=== PATIENT | female | born 1995 | race African-American/Black ===

== ENCOUNTER 2020-01-31 15:32 | Inpatient (IN) | payer MEDICAID, OTHER ==
[~2020-01-31] VITALS: Ht 144.8 cm; Wt 71.0 kg
[2020-01-31] MEDS ORDERED: DIVA-85 PO (16:10)
[2020-01-31] MEDS ORDERED: LEVE250T55 PO (16:10)
[2020-01-31] MEDS ORDERED: ESCI-8 PO (16:10)
[2020-01-31 16:48] LABS: BASOPHILS % (AUTO) 0.4 % (0.0-2.0); EOSINOPHILS % (AUTO) 2.9 % (1.0-6.0); HEMATOCRIT 40.2 % (36-46); LYMPHOCYTES # (AUTO) 1.4 K/uL (1.0-4.8); LYMPHOCYTES % (AUTO) 30.8 % (22.0-44.0); MEAN CORPUSCULAR HEMOGLOBIN 29.2 pg (26.0-34.0); MEAN CORPUSCULAR HGB CONC 32.3 G/dL (31.0-37.0); MEAN CORPUSCULAR VOLUME 90 fL (80-100); MONOCYTES # (AUTO) 0.5 K/uL (0.1-1.0); MONOCYTES % (AUTO) 10.7 % (2.0-9.0); NEUTROPHILS # (AUTO) 2.6 K/uL (1.8-7.7); NEUTROPHILS % (AUTO) 55.2 % (40.0-70.0); PLATELET COUNT (AUTO) 232 K/uL (150-450); RED BLOOD CELL COUNT(AUTO) 4.45 MIL/uL (4.00-5.20); RED CELL DISTRIBUTION WIDTH 15.4 % (11.5-14.5)
[2020-01-31 16:56] LABS: ANION GAP 5 mmol/L (8-16); CALCIUM, TOTAL 8.7 mg/dL (8.8-10.5); CARBON DIOXIDE 28 mmol/L (22-29); CHLORIDE 104 mmol/L (98-107); CREATININE 0.93 mg/dL (0.60-1.30); GLOMERULAR FILTR. RATE CALC > 60 mL/min (>60); GLUCOSE,RANDOM 95 mg/dL (70-110); POTASSIUM 3.7 mmol/L (3.5-5.1); SODIUM SERUM 137 mmol/L (136-145); UREA NITROGEN, BLOOD 10 mg/dL (7-18)
[2020-01-31 17:08] LABS: ALANINE AMINOTRANSFERASE 26 U/L (12-78); ALBUMIN 3.4 g/dL (3.4-5.0); ALKALINE PHOSPHATASE 52 U/L (46-116); ASPARTATE AMINOTRANSFERASE 16 U/L (15-37); BILIRUBIN,TOTAL 0.2 mg/dL (0.1-1.0); HCG,QUANTITATIVE 1 mIU/mL (0-6); TOTAL PROTEIN, SERUM 8.2 g/dL (6.4-8.2)
[2020-01-31] MEDS ORDERED: ZOLPIDEM TARTRATE 10 MG TABLET PO PRN (19:00)
[2020-01-31] MEDS ORDERED: QUEtiapine FUMARATE 100 MG TABLET PO PRN (19:00)
[2020-01-31 19:27] LABS: COVID AG,FIA SOURCE NASOPHARYNGEAL
[2020-01-31] MEDS ORDERED: MAGNESIUM HYDROXIDE SUSPENSION 30 ML UDCUP PO PRN (20:00)
[2020-01-31] MEDS ORDERED: PETROLATUM,WHITE 28 GM JELLY TP PRN (20:00)
[2020-01-31] MEDS ORDERED: IBUPROFEN 400 MG TABLET PO PRN (20:00)
[2020-01-31] MEDS ORDERED: MAG HYDROX/AL HYDROX/SIMETH ES 30 ML SUSPENSION UDCUP PO PRN (20:00)
[2020-01-31] MEDS ORDERED: ONDANSETRON HCL 4 MG TABLET PO PRN (20:00)
[2020-01-31] MEDS ORDERED: ACETAMINOPHEN 325 MG TABLET PO PRN (20:00)
[2020-01-31] MEDS ORDERED: ALBUTEROL SULFATE HFA 90 MCG/PUFF 8 GM INHALER IH PRN (20:00)
[2020-01-31] MEDS ORDERED: LOPERAMIDE HCL 2 MG CAPSULE PO PRN (20:00)
[2020-01-31] MEDS ORDERED: DOCUSATE SODIUM 100 MG CAPSULE PO PRN (20:00)
[2020-01-31] MEDS ORDERED: CloNIDine HCL 0.1 MG TABLET PO PRN (20:00)
[2020-01-31] MEDS ORDERED: GuaiFENesin/D-METHORPHAN [SUGAR-FREE] 200-20MG/10 ML SYRUP UDCUP PO PRN (20:00)
[2020-01-31] MEDS ORDERED: NICOTINE 14 MG/24 HOUR PATCH TD PRN (20:00)
[2020-01-31] MEDS: LevETIRAcetam 250 MG TABLET PO SCH (22:01)
[2020-01-31 22:03] VITALS: BP 118/77
[2020-01-31] MEDS ORDERED: INFLUENZA VIRUS VACCINE QVS 2020-21 (6MO+)/PF 60 MCG/0.5 ML SYRINGE IM ONE (23:00)
[2020-02-01 00:16] VITALS: BP 112/64
[2020-02-01 07:37] LABS: HEMOGLOBIN A1C 5.6 % (3.8-5.6)
[2020-02-01 07:54] LABS: FREE T4 (FREE THYROXINE) 1.02 ng/dL (0.76-1.46); THYROID STIMULATING HORMONE 2.95 uIU/mL (0.36-3.74)
[2020-02-01 08:09] LABS: CHOL/HDL RATIO 2.7 (3.9-5.7)
[2020-02-01 08:11] VITALS: BP 113/65
[2020-02-01] MEDS: LevETIRAcetam 250 MG TABLET PO SCH ×2 (09:06→15:46)
[2020-02-01] MEDS: LORazepam 2 MG TABLET PO PRN (13:46)
[2020-02-01] MEDS: DIVALPROEX SODIUM 250 MG ER TABLET PO SCH (15:47)
[2020-02-01 16:13] VITALS: BP 118/68
[2020-02-02] VITALS: BP 114/67
[2020-02-02] MEDS: DIVALPROEX SODIUM 250 MG ER TABLET PO SCH ×2 (08:37→17:05)
[2020-02-02] MEDS: LevETIRAcetam 250 MG TABLET PO SCH ×2 (08:37→17:05)
[2020-02-02] MEDS: ESCITALOPRAM OXALATE 10 MG TABLET PO SCH (08:37)
[2020-02-02 09:24] VITALS: BP 109/64
[2020-02-02 16:16] VITALS: BP 107/60
[2020-02-03 06:58] VITALS: BP 110/68
[2020-02-03 08:15] VITALS: BP 116/62
[2020-02-03] MEDS: LevETIRAcetam 250 MG TABLET PO SCH ×2 (08:21→16:16)
[2020-02-03] MEDS: DIVALPROEX SODIUM 250 MG ER TABLET PO SCH ×2 (08:21→16:16)
[2020-02-03] MEDS: ESCITALOPRAM OXALATE 10 MG TABLET PO SCH (08:21)
[2020-02-03 16:06] VITALS: BP 135/77
[2020-02-04 06:07] VITALS: BP 118/61
[2020-02-04 08:26] VITALS: BP 107/64
[2020-02-04] MEDS: DIVALPROEX SODIUM 250 MG ER TABLET PO SCH ×2 (08:36→16:06)
[2020-02-04] MEDS: ESCITALOPRAM OXALATE 10 MG TABLET PO SCH (08:36)
[2020-02-04] MEDS: LevETIRAcetam 250 MG TABLET PO SCH ×2 (08:37→16:06)
[2020-02-04 16:10] VITALS: BP 105/59
[2020-02-05 00:14] VITALS: BP 108/63
[2020-02-05] MEDS: LevETIRAcetam 250 MG TABLET PO SCH ×2 (08:26→16:23)
[2020-02-05] MEDS: ESCITALOPRAM OXALATE 10 MG TABLET PO SCH (08:26)
[2020-02-05] MEDS: DIVALPROEX SODIUM 250 MG ER TABLET PO SCH ×2 (08:26→16:23)
[2020-02-05 08:28] VITALS: BP 106/64
[2020-02-05 16:10] VITALS: BP 103/63
[2020-02-06 00:12] VITALS: BP 108/61
[2020-02-06 02:10] VITALS: BP 138/74
[2020-02-06 08:23] VITALS: BP 106/60
[2020-02-06] MEDS: LevETIRAcetam 250 MG TABLET PO SCH ×2 (08:32→17:02)
[2020-02-06] MEDS: ESCITALOPRAM OXALATE 10 MG TABLET PO SCH (08:32)
[2020-02-06] MEDS: DIVALPROEX SODIUM 250 MG ER TABLET PO SCH ×2 (08:32→17:02)
[2020-02-06 16:08] VITALS: BP 106/65
[2020-02-06] MEDS: LORazepam 2 MG TABLET PO PRN (16:11)
[2020-02-07] VITALS: BP 110/68
[2020-02-07 08:08] VITALS: BP 102/60
[2020-02-07] MEDS: ESCITALOPRAM OXALATE 10 MG TABLET PO SCH (08:30)
[2020-02-07] MEDS: DIVALPROEX SODIUM 250 MG ER TABLET PO SCH (08:30)
[2020-02-07] MEDS: LevETIRAcetam 250 MG TABLET PO SCH (08:31)
== END 2020-02-07 14:47 | disposition home or self-care (01) | DRG 753 ==
LOC: EMS 15:38 → B2S 18:55
PROVIDERS: ADMIT Psychiatry & Neurology Child & Adolescent Psychiatry; ATTEND Psychiatry & Neurology Child & Adolescent Psychiatry
DX: F31.4 Bipolar disorder, current episode depressed, severe, without psychotic features (principal); R45.851 Suicidal ideations; F41.9 Anxiety disorder, unspecified; G40.909 Epilepsy, unspecified, not intractable, without status epilepticus; R10.13 Epigastric pain; I10 Essential (primary) hypertension; F10.10 Alcohol abuse, uncomplicated; Y90.9 Presence of alcohol in blood, level not specified; G44.209 Tension-type headache, unspecified, not intractable; Z20.828 Contact with and (suspected) exposure to other viral communicable diseases; Z23 Encounter for immunization
CPT/HCPCS: 83036; 84439; 84443; 87426; 90686; G0480; G0482

== ENCOUNTER 2023-12-22 16:06 | Emergency (ER) | payer MEDICAID ==
[~2023-12-22] VITALS: Ht 139.7 cm; Wt 80.0 kg
[~2023-12-22 16:06] MED LIST: DIVA-85 PO; ESCI-8 PO; LEVE250T81 PO
[2023-12-22 16:12] VITALS: BP 110/62; PULSE 67; RESP 18; TEMP 97.9; O2SAT 98
[2023-12-22 16:58] LABS: BASOPHILS % (AUTO) 0.6 % (0.0-2.0); EOSINOPHILS % (AUTO) 3.4 % (1.0-6.0); HEMATOCRIT 44.8 % (36-46); HEMOGLOBIN 14.1 g/dL (12.0-16.0); LYMPHOCYTES # (AUTO) 2.4 K/uL (1.0-4.8); LYMPHOCYTES % (AUTO) 40.3 % (22.0-44.0); MEAN CORPUSCULAR HEMOGLOBIN 27.9 pg (26.0-34.0); MEAN CORPUSCULAR HGB CONC 31.5 G/dL (31.0-37.0); MEAN CORPUSCULAR VOLUME 89 fL (80-100); MONOCYTES # (AUTO) 0.5 K/uL (0.1-1.0); MONOCYTES % (AUTO) 7.8 % (2.0-9.0); NEUTROPHILS # (AUTO) 2.9 K/uL (1.8-7.7); NEUTROPHILS % (AUTO) 47.9 % (40.0-70.0); PLATELET COUNT (AUTO) 233 K/uL (150-450); RED BLOOD CELL COUNT(AUTO) 5.06 MIL/uL (4.00-5.20); RED CELL DISTRIBUTION WIDTH 14.7 % (11.5-14.5)
[2023-12-22 17:06] LABS: ANION GAP 6 mmol/L (8-16); CARBON DIOXIDE 33 mmol/L (22-29); CHLORIDE 102 mmol/L (98-107); GLOMERULAR FILTR. RATE CALC > 60 mL/min (>60); GLUCOSE,RANDOM 86 mg/dL (70-110); SODIUM SERUM 141 mmol/L (136-145); UREA NITROGEN, BLOOD 10 mg/dL (7-18)
[2023-12-22 17:17] LABS: HCG,QUANTITATIVE < 1 mIU/mL (0-6); LIPASE 16 U/L (16-77)
== END 2023-12-22 18:51 | disposition home or self-care (01) ==
LOC: EMS 16:07
DX: R10.9 Unspecified abdominal pain (principal); F32.A Depression, unspecified; F41.9 Anxiety disorder, unspecified; Z79.899 Other long term (current) drug therapy
CPT/HCPCS: 80048; 83690; 84702; 85025; 99283

== ENCOUNTER 2024-02-28 11:37 | Emergency (ER) | payer MEDICAID ==
[~2024-02-28] VITALS: Ht 144.8 cm; Wt 75.0 kg
[~2024-02-28 11:37] MED LIST changes: +ARIP10TA38 PO; +EMTR1TAB53 PO; +METF-1211 PO; +ONDA-104 PO; +RALO60 PO; +RALT400T PO; +SERT-162 PO; +TRAZ-252 PO
[2024-02-28 12:06] VITALS: TEMP 97.8
[2024-02-28] MEDS ORDERED: LEVE1000 PO (12:10)
[2024-02-28 14:45] LABS: APPEARANCE,URINE CLEAR (CLEAR); BILIRUBIN,URINE NEGATIVE (NEGATIVE); COLOR,URINE LIGHT YELLOW (YELLOW); GLUCOSE, URINE (UA) NEGATIVE (NEGATIVE); KETONES,URINE NEGATIVE (NEGATIVE); LEUKOCYTE ESTERASE ,URINE NEGATIVE (NEGATIVE); NITRATE,URINE NEGATIVE (NEGATIVE); OCCULT BLOOD,URINE NEGATIVE (NEGATIVE); PROTEIN,URINE NEGATIVE (NEGATIVE); SPECIFIC GRAVITIY, URINE 1.014 (1.003-1.030); UROBILINOGEN,URINE <=1.0 mg/dL (<=1.0)
[2024-02-28 14:53] LABS: BASOPHILS % (AUTO) 0.9 % (0.0-2.0); EOSINOPHILS % (AUTO) 0.8 % (1.0-6.0); HEMOGLOBIN 13.2 g/dL (12.0-16.0); LYMPHOCYTES # (AUTO) 2.3 K/uL (1.0-4.8); MEAN CORPUSCULAR HEMOGLOBIN 28.6 pg (26.0-34.0); MEAN CORPUSCULAR HGB CONC 32.3 G/dL (31.0-37.0); MEAN CORPUSCULAR VOLUME 88 fL (80-100); MONOCYTES # (AUTO) 0.5 K/uL (0.1-1.0); MONOCYTES % (AUTO) 8.4 % (2.0-9.0); NEUTROPHILS % (AUTO) 50.9 % (40.0-70.0); PLATELET COUNT (AUTO) 217 K/uL (150-450); RED BLOOD CELL COUNT(AUTO) 4.64 MIL/uL (4.00-5.20); RED CELL DISTRIBUTION WIDTH 14.9 % (11.5-14.5); WHITE BLOOD COUNT (AUTO) 5.8 K/uL (4.5-11.0)
[2024-02-28 14:56] LABS: RBC,URINE None Seen /HPF (0-2); SQUAMOUS EPITHELIAL CELL,UR Few /LPF (None Seen); WBC,URINE 0-2 /HPF (0-5)
[2024-02-28 14:57] LABS: BACTERIA,URINE None Seen /HPF (None Seen)
[2024-02-28] MEDS: KETOROLAC TROMETHAMINE 60 MG/2 ML VIAL IM ONE (14:59)
[2024-02-28] MEDS: ACETAMINOPHEN 500 MG TABLET PO ONE (14:59)
[2024-02-28] MEDS: METHOCARBAMOL 500 MG TABLET PO ONE (15:00)
[2024-02-28 15:02] LABS: ANION GAP 8 mmol/L (8-16); CALCIUM, TOTAL 8.7 mg/dL (8.8-10.5); CARBON DIOXIDE 27 mmol/L (22-29); CHLORIDE 104 mmol/L (98-107); GLOMERULAR FILTR. RATE CALC > 60 mL/min (>60); GLUCOSE,RANDOM 79 mg/dL (70-110); POTASSIUM 3.6 mmol/L (3.5-5.1); SODIUM SERUM 139 mmol/L (136-145); UREA NITROGEN, BLOOD 8 mg/dL (7-18)
[2024-02-28 15:18] LABS: ALCOHOL, BLOOD (SERUM) < 3 mg/dL (0-10)
[2024-02-28 18:47] VITALS: BP 137/78; PULSE 57; RESP 16; O2SAT 99
[2024-02-28] MEDS ORDERED: ACET-66 PO (20:54)
[2024-02-28] MEDS ORDERED: IBUP-1554 PO (20:54)
[2024-02-28] MEDS ORDERED: METH-659 PO (20:54)
[2024-02-28] MEDS ORDERED: IBUPROFEN 600 MG TABLET PO ONE (21:00)
== END 2024-02-28 21:14 | disposition home or self-care (01) ==
LOC: EMS 11:37
DX: F79 Unspecified intellectual disabilities (principal); F84.0 Autistic disorder; H91.90 Unspecified hearing loss, unspecified ear; F32.A Depression, unspecified; F41.9 Anxiety disorder, unspecified; Z91.010 Allergy to peanuts; Z79.624 Long term (current) use of inhibitors of nucleotide synthesis; Z79.84 Long term (current) use of oral hypoglycemic drugs; Z79.899 Other long term (current) drug therapy
CPT/HCPCS: 99284; 80048; 81001; 84703; 85025; 36415; 72040; 87491; 87591; 96372; G0480; J1885

== ENCOUNTER 2024-03-26 20:35 | Emergency (ER) | payer MEDICAID ==
[~2024-03-26] VITALS: Ht 157.5 cm; Wt 92.0 kg
[~2024-03-26 20:35] MED LIST changes: +DIVA-153 PO; -DIVA-85 PO; -ESCI-8 PO; +LEVE1000 PO; -LEVE250T81 PO; -METF-1211 PO; -ONDA-104 PO; -RALO60 PO; -SERT-162 PO
[2024-03-26 20:39] VITALS: BP 122/88; PULSE 72; RESP 20; TEMP 97.9; O2SAT 100
[2024-03-26 23:38] LABS: BASOPHILS % (AUTO) 0.6 % (0.0-2.0); EOSINOPHILS % (AUTO) 1.6 % (1.0-6.0); HEMATOCRIT 42.6 % (36-46); HEMOGLOBIN 13.8 g/dL (12.0-16.0); LYMPHOCYTES # (AUTO) 2.9 K/uL (1.0-4.8); LYMPHOCYTES % (AUTO) 30.5 % (22.0-44.0); MEAN CORPUSCULAR HGB CONC 32.4 G/dL (31.0-37.0); MEAN CORPUSCULAR VOLUME 90 fL (80-100); MONOCYTES # (AUTO) 0.8 K/uL (0.1-1.0); MONOCYTES % (AUTO) 8.5 % (2.0-9.0); NEUTROPHILS # (AUTO) 5.6 K/uL (1.8-7.7); NEUTROPHILS % (AUTO) 58.8 % (40.0-70.0); PLATELET COUNT (AUTO) 215 K/uL (150-450); RED BLOOD CELL COUNT(AUTO) 4.76 MIL/uL (4.00-5.20); RED CELL DISTRIBUTION WIDTH 14.9 % (11.5-14.5); WHITE BLOOD COUNT (AUTO) 9.5 K/uL (4.5-11.0)
[2024-03-26 23:48] LABS: APPEARANCE,URINE CLEAR (CLEAR); BILIRUBIN,URINE NEGATIVE (NEGATIVE); COLOR,URINE YELLOW (YELLOW); GLUCOSE, URINE (UA) NEGATIVE (NEGATIVE); KETONES,URINE 40-60 mg/dL (NEGATIVE); LEUKOCYTE ESTERASE ,URINE NEGATIVE (NEGATIVE); NITRATE,URINE NEGATIVE (NEGATIVE); OCCULT BLOOD,URINE NEGATIVE (NEGATIVE); PROTEIN,URINE TRACE mg/dL (NEGATIVE); SPECIFIC GRAVITIY, URINE 1.033 (1.003-1.030); UROBILINOGEN,URINE <=1.0 mg/dL (<=1.0)
[2024-03-26 23:51] LABS: ANION GAP 5 mmol/L (8-16); CALCIUM, TOTAL 9.1 mg/dL (8.8-10.5); CARBON DIOXIDE 32 mmol/L (22-29); CHLORIDE 102 mmol/L (98-107); CREATININE 0.94 mg/dL (0.60-1.30); GLOMERULAR FILTR. RATE CALC > 60 mL/min (>60); GLUCOSE,RANDOM 91 mg/dL (70-110); POTASSIUM 3.7 mmol/L (3.5-5.1); SODIUM SERUM 139 mmol/L (136-145); UREA NITROGEN, BLOOD 11 mg/dL (7-18)
[2024-03-26 23:52] LABS: ALANINE AMINOTRANSFERASE 23 U/L (12-78); ALBUMIN 3.7 g/dL (3.4-5.0); ALKALINE PHOSPHATASE 63 U/L (46-116); ASPARTATE AMINOTRANSFERASE 14 U/L (15-37); BILIRUBIN,TOTAL 0.3 mg/dL (0.1-1.0); LIPASE 17 U/L (16-77)
== END 2024-03-27 00:17 | disposition home or self-care (01) ==
LOC: EMS 20:35
DX: R10.13 Epigastric pain (principal); F41.9 Anxiety disorder, unspecified; F32.A Depression, unspecified; F84.0 Autistic disorder; R11.2 Nausea with vomiting, unspecified; Z98.890 Other specified postprocedural states; Z79.624 Long term (current) use of inhibitors of nucleotide synthesis; Z79.899 Other long term (current) drug therapy
CPT/HCPCS: 80048; 80076; 80164; 81003; 83690; 84703; 85025; 99283

== ENCOUNTER 2024-04-12 12:56 | Inpatient (IN) | payer SELFPAY ==
[~2024-04-12] VITALS: Ht 152.4 cm; Wt 79.2 kg
[2024-04-12 14:24] LABS: BASOPHILS % (AUTO) 1.2 % (0.0-2.0); EOSINOPHILS % (AUTO) 4.2 % (1.0-6.0); HEMOGLOBIN 13.3 g/dL (12.0-16.0); LYMPHOCYTES # (AUTO) 1.5 K/uL (1.0-4.8); LYMPHOCYTES % (AUTO) 34.7 % (22.0-44.0); MEAN CORPUSCULAR HEMOGLOBIN 28.9 pg (26.0-34.0); MEAN CORPUSCULAR HGB CONC 31.7 G/dL (31.0-37.0); MEAN CORPUSCULAR VOLUME 91 fL (80-100); MONOCYTES # (AUTO) 0.4 K/uL (0.1-1.0); MONOCYTES % (AUTO) 8.6 % (2.0-9.0); NEUTROPHILS # (AUTO) 2.2 K/uL (1.8-7.7); NEUTROPHILS % (AUTO) 51.3 % (40.0-70.0); PLATELET COUNT (AUTO) 171 K/uL (150-450); RED BLOOD CELL COUNT(AUTO) 4.61 MIL/uL (4.00-5.20); RED CELL DISTRIBUTION WIDTH 14.8 % (11.5-14.5); WHITE BLOOD COUNT (AUTO) 4.3 K/uL (4.5-11.0)
[2024-04-12] MEDS: LevETIRAcetam 1,000 MG in DEXTROSE 5%-WATER 100 ML IV ONE (14:24)
[2024-04-12 14:25] LABS: ANION GAP 3 mmol/L (8-16); CALCIUM, TOTAL 8.4 mg/dL (8.8-10.5); CARBON DIOXIDE 34 mmol/L (22-29); CHLORIDE 107 mmol/L (98-107); CREATININE 0.83 mg/dL (0.60-1.30); GLOMERULAR FILTR. RATE CALC > 60 mL/min (>60); GLUCOSE,RANDOM 80 mg/dL (70-110); POTASSIUM 3.7 mmol/L (3.5-5.1); SODIUM SERUM 144 mmol/L (136-145); UREA NITROGEN, BLOOD 9 mg/dL (7-18)
[2024-04-12 14:32] LABS: APPEARANCE,URINE CLEAR (CLEAR); BILIRUBIN,URINE NEGATIVE (NEGATIVE); COLOR,URINE YELLOW (YELLOW); GLUCOSE, URINE (UA) NEGATIVE (NEGATIVE); KETONES,URINE TRACE mg/dL (NEGATIVE); LEUKOCYTE ESTERASE ,URINE TRACE (NEGATIVE); NITRATE,URINE NEGATIVE (NEGATIVE); OCCULT BLOOD,URINE LARGE (NEGATIVE); PH,URINE 6.5 (5.0-8.0); PROTEIN,URINE TRACE mg/dL (NEGATIVE); SPECIFIC GRAVITIY, URINE 1.026 (1.003-1.030); UROBILINOGEN,URINE <=1.0 mg/dL (<=1.0)
[2024-04-12 14:35] LABS: ALANINE AMINOTRANSFERASE 19 U/L (12-78); ALBUMIN 3.1 g/dL (3.4-5.0); ALKALINE PHOSPHATASE 48 U/L (46-116); ASPARTATE AMINOTRANSFERASE 10 U/L (15-37); B-TYPE NATRIURETIC PEPTIDE 49 pg/mL (0-100); BILIRUBIN,TOTAL 0.1 mg/dL (0.1-1.0); CREATINE KINASE, TOTAL ONLY 93 U/L (26-192); TOTAL PROTEIN, SERUM 7.3 g/dL (6.4-8.2); TROPONIN I-HIGH SENSITIVITY 5 ng/L (<51)
[2024-04-12] MEDS ORDERED: ZOLPIDEM TARTRATE 5 MG TABLET PO PRN (14:45)
[2024-04-12] MEDS ORDERED: MAGNESIUM HYDROXIDE SUSPENSION 30 ML UDCUP PO PRN (14:45)
[2024-04-12 14:46] LABS: BACTERIA,URINE Few /HPF (None Seen); RBC,URINE 26-50 /HPF (0-2); WBC,URINE 0-2 /HPF (0-5)
[2024-04-12 14:47] LABS: VALPROIC ACID 66 mcg/mL (50-100)
[2024-04-12] MEDS: DIVALPROEX SODIUM 500 MG DR TABLET PO SCH (21:14)
[2024-04-12] MEDS: LevETIRAcetam 250 MG in DEXTROSE 5%-WATER 100 ML IV SCH (22:14)
[2024-04-12] MEDS: LORazepam 2 MG/ML VIAL IVP PRN (23:27)
[2024-04-13 04:49] VITALS: BP 124/65; PULSE 54; RESP 18; TEMP 97.6; O2SAT 99
[2024-04-13 07:37] VITALS: BP 119/71; PULSE 55; RESP 18; TEMP 97.5; O2SAT 98
[2024-04-13] MEDS ORDERED: SODIUM CHLORIDE 0.9% 250 ML IV ONE (09:04)
[2024-04-13] MEDS: FAMOTIDINE 20 MG TABLET PO SCH (09:05)
[2024-04-13] MEDS: ACETAMINOPHEN 325 MG TABLET PO PRN (09:51)
[2024-04-13 11:59] VITALS: BP 99/58; PULSE 76; RESP 16; TEMP 98.2; O2SAT 95
[2024-04-13] MEDS ORDERED: LEVE1000 PO (15:28)
[2024-04-13] MEDS ORDERED: LEVE250T PO (15:28)
[2024-04-13 15:42] VITALS: BP 109/73; PULSE 58; RESP 16; TEMP 97.7; O2SAT 95
== END 2024-04-13 16:20 | disposition home or self-care (01) | DRG 101 ==
LOC: EMS 12:56 → EDH 14:41 → 5S 04-13 00:48
PROVIDERS: ADMIT Internal Medicine; ATTEND Internal Medicine
DX: G40.909 Epilepsy, unspecified, not intractable, without status epilepticus (principal); F84.0 Autistic disorder; E66.9 Obesity, unspecified; H91.3 Deaf nonspeaking, not elsewhere classified; F32.A Depression, unspecified; F41.9 Anxiety disorder, unspecified; Z91.010 Allergy to peanuts; Z68.34 Body mass index [BMI] 34.0-34.9, adult; Z79.899 Other long term (current) drug therapy
CPT/HCPCS: 70450; 71045; 80048; 80076; 80164; 81001; 82550; 83880; 84484; 84703; 85025; 87081; 93005; 99285; G0378; J0712; J2060; J7050; J7060; 36415-L1; 36415-TC

== ENCOUNTER 2024-06-13 19:40 | Emergency (ER) | payer OTHER ==
[~2024-06-13] VITALS: Ht 152.4 cm; Wt 79.0 kg
[~2024-06-13 19:40] MED LIST changes: +LEVE250T PO
[2024-06-13 20:20] VITALS: TEMP 98.1
[2024-06-14 00:18] LABS: BASOPHILS % (AUTO) 0.6 % (0.0-2.0); EOSINOPHILS % (AUTO) 1.8 % (1.0-6.0); HEMATOCRIT 42.5 % (36-46); HEMOGLOBIN 13.9 g/dL (12.0-16.0); LYMPHOCYTES # (AUTO) 2.3 K/uL (1.0-4.8); LYMPHOCYTES % (AUTO) 32.2 % (22.0-44.0); MEAN CORPUSCULAR HEMOGLOBIN 29.7 pg (26.0-34.0); MEAN CORPUSCULAR HGB CONC 32.7 G/dL (31.0-37.0); MEAN CORPUSCULAR VOLUME 91 fL (80-100); MONOCYTES # (AUTO) 0.8 K/uL (0.1-1.0); MONOCYTES % (AUTO) 11.2 % (2.0-9.0); NEUTROPHILS # (AUTO) 3.8 K/uL (1.8-7.7); NEUTROPHILS % (AUTO) 54.2 % (40.0-70.0); PLATELET COUNT (AUTO) 184 K/uL (150-450); RED BLOOD CELL COUNT(AUTO) 4.69 MIL/uL (4.00-5.20); RED CELL DISTRIBUTION WIDTH 14.7 % (11.5-14.5)
[2024-06-14 00:20] LABS: ANION GAP 8 mmol/L (8-16); CALCIUM, TOTAL 8.6 mg/dL (8.8-10.5); CARBON DIOXIDE 27 mmol/L (22-29); CHLORIDE 104 mmol/L (98-107); GLOMERULAR FILTR. RATE CALC > 60 mL/min (>60); GLUCOSE,RANDOM 77 mg/dL (70-110); POTASSIUM 3.5 mmol/L (3.5-5.1); SODIUM SERUM 139 mmol/L (136-145); UREA NITROGEN, BLOOD 11 mg/dL (7-18)
[2024-06-14 00:28] LABS: ALBUMIN 3.5 g/dL (3.4-5.0); BILIRUBIN,DIRECT 0.1 mg/dL (0.00-0.20); BILIRUBIN,TOTAL 0.4 mg/dL (0.1-1.0); TOTAL PROTEIN, SERUM 7.6 g/dL (6.4-8.2)
[2024-06-14 00:31] LABS: HCG,QUANTITATIVE 1 mIU/mL (0-6); LIPASE 14 U/L (16-77)
[2024-06-14] MEDS: ACETAMINOPHEN 325 MG TABLET PO ONE (02:52)
[2024-06-14 10:39] VITALS: BP 148/101; PULSE 64; RESP 19; O2SAT 98
== END 2024-06-14 10:45 | disposition home or self-care (01) ==
LOC: EMS 19:40 → CANBEDREQ 06-14 06:48 → EMS 06-14 10:45
DX: R10.84 Generalized abdominal pain (principal); R56.9 Unspecified convulsions; Z79.624 Long term (current) use of inhibitors of nucleotide synthesis; Z79.899 Other long term (current) drug therapy
CPT/HCPCS: 80048; 80076; 83690; 84702; 85025; 99283

== ENCOUNTER 2024-06-23 02:13 | Inpatient (IN) | payer MEDICAID ==
[~2024-06-23] VITALS: Ht 147.3 cm; Wt 77.6 kg
[2024-06-23 06:06] VITALS: BP 109/77; PULSE 90; RESP 18; TEMP 97.6; O2SAT 97
[2024-06-23 06:09] VITALS: BP 109/77; PULSE 90; RESP 18; TEMP 97.6; O2SAT 97
[2024-06-23 08:32] VITALS: RESP 18
[2024-06-23] MEDS ORDERED: PNEUMOCOCCAL VACCINE POLYVALENT 0.5 ML SYRINGE [PPSV23] IM. ONE (09:00)
[2024-06-23] MEDS: DIVALPROEX SODIUM 500 MG ER TABLET PO SCH (16:03)
[2024-06-23] MEDS: ZOLPIDEM TARTRATE 10 MG TABLET PO PRN (20:11)
[2024-06-23 20:14] VITALS: BP 117/75; PULSE 70; RESP 18; TEMP 97.3; O2SAT 98
[2024-06-23] MEDS ORDERED: DOCUSATE SODIUM 100 MG CAPSULE PO PRN (22:30)
[2024-06-23] MEDS ORDERED: LOPERAMIDE HCL 2 MG CAPSULE PO PRN (22:30)
[2024-06-23] MEDS ORDERED: OMEPRAZOLE 20 MG CAPSULE PO PRN (22:30)
[2024-06-23] MEDS ORDERED: BACITRACIN 28 GM OINTMENT TP PRN (22:30)
[2024-06-23] MEDS ORDERED: BENZOCAINE/MENTHOL [CEPACOL] LOZENGE PO PRN (22:30)
[2024-06-23] MEDS ORDERED: ONDANSETRON 4 MG TABLET PO PRN (22:30)
[2024-06-23] MEDS ORDERED: CloNIDine HCL 0.1 MG TABLET PO PRN (22:30)
[2024-06-23] MEDS ORDERED: PETROLATUM,WHITE 28 GM JELLY TP PRN (22:30)
[2024-06-23] MEDS ORDERED: MAGNESIUM HYDROXIDE SUSPENSION 30 ML UDCUP PO PRN (22:30)
[2024-06-23] MEDS ORDERED: IBUPROFEN 600 MG TABLET PO PRN (22:30)
[2024-06-23] MEDS: LevETIRAcetam 500 MG TABLET PO SCH (22:53)
[2024-06-24 08:13] VITALS: BP 107/79; PULSE 81; RESP 16; TEMP 97.7; O2SAT 95
[2024-06-24 08:16] VITALS: BP 107/79; PULSE 81; RESP 16; TEMP 97.7; O2SAT 95
[2024-06-24 08:59] LABS: BASOPHILS % (AUTO) 0.5 % (0.0-2.0); EOSINOPHILS % (AUTO) 4.1 % (1.0-6.0); HEMATOCRIT 41.8 % (36-46); HEMOGLOBIN 13.3 g/dL (12.0-16.0); LYMPHOCYTES # (AUTO) 2.5 K/uL (1.0-4.8); LYMPHOCYTES % (AUTO) 45.8 % (22.0-44.0); MEAN CORPUSCULAR HEMOGLOBIN 28.8 pg (26.0-34.0); MEAN CORPUSCULAR HGB CONC 31.7 G/dL (31.0-37.0); MEAN CORPUSCULAR VOLUME 91 fL (80-100); MONOCYTES # (AUTO) 0.5 K/uL (0.1-1.0); MONOCYTES % (AUTO) 8.5 % (2.0-9.0); NEUTROPHILS # (AUTO) 2.3 K/uL (1.8-7.7); NEUTROPHILS % (AUTO) 41.1 % (40.0-70.0); PLATELET COUNT (AUTO) 254 K/uL (150-450); RED BLOOD CELL COUNT(AUTO) 4.61 MIL/uL (4.00-5.20); RED CELL DISTRIBUTION WIDTH 14.8 % (11.5-14.5); WHITE BLOOD COUNT (AUTO) 5.5 K/uL (4.5-11.0)
[2024-06-24 09:16] LABS: HEMOGLOBIN A1C 5.5 % (3.8-5.6)
[2024-06-24] MEDS: ARIPiprazole 10 MG TABLET PO SCH (09:21)
[2024-06-24] MEDS: EMTRICITABINE/TENOFOVIR 200-300 MG TABLET PO SCH (09:21)
[2024-06-24] MEDS: RALTEGRAVIR 400 MG TABLET PO SCH (09:22)
[2024-06-24 09:32] LABS: ALANINE AMINOTRANSFERASE 57 U/L (12-78); ALBUMIN 3.1 g/dL (3.4-5.0); ALKALINE PHOSPHATASE 43 U/L (46-116); ANION GAP 8 mmol/L (8-16); ASPARTATE AMINOTRANSFERASE 37 U/L (15-37); BILIRUBIN,TOTAL 0.2 mg/dL (0.1-1.0); CARBON DIOXIDE 30 mmol/L (22-29); CHLORIDE 102 mmol/L (98-107); CHOL/HDL RATIO 2.4 (3.9-5.7); CHOLESTEROL 197 mg/dL (131-200); CREATININE 0.68 mg/dL (0.60-1.30); FREE T4 (FREE THYROXINE) 0.74 ng/dL (0.76-1.46); GLOMERULAR FILTR. RATE CALC > 60 mL/min (>60); GLUCOSE,RANDOM 78 mg/dL (70-110); HCG,QUANTITATIVE 1 mIU/mL (0-6); HDL CHOLESTEROL 83 mg/dL (40-60); LDL CHOL (CALC.) 88 mg/dL (0-130); SODIUM SERUM 140 mmol/L (136-145); T4 (THYROXINE) 6.7 mcg/dL (4.7-13.3); THYROID STIMULATING HORMONE 8.08 uIU/mL (0.36-3.74); TOTAL PROTEIN, SERUM 7.3 g/dL (6.4-8.2); TRIGLYCERIDES 132 mg/dL (15-150); UREA NITROGEN, BLOOD 12 mg/dL (7-18); VALPROIC ACID 37 mcg/mL (50-100)
[2024-06-24 09:37] LABS: APPEARANCE,URINE CLEAR (CLEAR); BILIRUBIN,URINE NEGATIVE (NEGATIVE); COLOR,URINE LIGHT YELLOW (YELLOW); GLUCOSE, URINE (UA) NEGATIVE (NEGATIVE); KETONES,URINE NEGATIVE (NEGATIVE); LEUKOCYTE ESTERASE ,URINE MODERATE (NEGATIVE); NITRATE,URINE NEGATIVE (NEGATIVE); OCCULT BLOOD,URINE NEGATIVE (NEGATIVE); PH,URINE 6.5 (5.0-8.0); PH,URINE DRUG SCREEN 6.5 (5.0-8.0); PROTEIN,URINE NEGATIVE (NEGATIVE); SPECIFIC GRAVITIY, URINE 1.021 (1.003-1.030); UROBILINOGEN,URINE <=1.0 mg/dL (<=1.0)
[2024-06-24 09:45] LABS: RBC,URINE 0-2 /HPF (0-2)
[2024-06-24 09:46] LABS: BACTERIA,URINE Few /HPF (None Seen); SQUAMOUS EPITHELIAL CELL,UR Few /LPF (None Seen)
[2024-06-24 09:50] LABS: ALCOHOL, URINE DRUG SCREEN NEGATIVE (NEGATIVE); AMPHET/METH SCREEN,URINE NEGATIVE (NEGATIVE); BARBITURATE SCREEN, URINE NEGATIVE (NEGATIVE); BENZODIAZEPINES SCREEN,URINE NEGATIVE (NEGATIVE); CANNABINOID SCREEN,URINE NEGATIVE (NEGATIVE); COCAINE SCREEN,URINE NEGATIVE (NEGATIVE); METHADONE SCREEN, URINE NEGATIVE (NEGATIVE); OPIATE SCREEN,URINE NEGATIVE (NEGATIVE); PHENCYCLIDINE SCREEN,URINE NEGATIVE (NEGATIVE)
[2024-06-24] MEDS: CEPHALEXIN MONOHYDRATE 250 MG CAPSULE PO SCH (16:39)
[2024-06-24] MEDS: LORazepam 2 MG TABLET PO PRN (16:39)
[2024-06-24 20:57] VITALS: BP 97/60; PULSE 71; RESP 16; TEMP 97.1; O2SAT 98
[2024-06-25 07:07] LABS: HEPATITIS C AB (EIA) Non Reactive (Non Reactive)
[2024-06-25 21:29] VITALS: BP 130/60; PULSE 65; RESP 17; TEMP 97.8; O2SAT 97
[2024-06-26 08:25] VITALS: BP 126/72; PULSE 75; RESP 17; TEMP 97.3; O2SAT 97
[2024-06-26 20:55] VITALS: BP 98/50; PULSE 78; RESP 20; TEMP 97.6; O2SAT 97
[2024-06-27 08:25] VITALS: RESP 16
[2024-06-27 08:26] VITALS: RESP 16
[2024-06-27] MEDS: MAG HYDROX/ALUMINUM HYD/SIMETH ES 30 ML SUSPENSION UDCUP PO PRN (18:47)
[2024-06-27 20:29] VITALS: BP 109/70; PULSE 78; RESP 16; TEMP 96.5; O2SAT 98
[2024-06-27 22:54] VITALS: BP 110/80; PULSE 73; RESP 18; TEMP 97.5; O2SAT 100
[2024-06-27] MEDS: ACETAMINOPHEN 325 MG TABLET PO PRN (22:57)
[2024-06-27 23:57] VITALS: RESP 18
[2024-06-28 16:55] VITALS: BP 108/67; PULSE 66; RESP 17; TEMP 97.7; O2SAT 99
[2024-06-28 22:02] VITALS: BP 114/97; PULSE 78; RESP 18; TEMP 98.1; O2SAT 96
[2024-06-29 08:46] VITALS: BP 120/55; PULSE 68; RESP 16; TEMP 97.9; O2SAT 96
[2024-06-29 21:22] VITALS: BP 113/75; PULSE 72; RESP 18; TEMP 97; O2SAT 99
[2024-06-30 22:06] VITALS: BP 122/85; PULSE 77; RESP 18; TEMP 97.6; O2SAT 99
[2024-07-01 13:39] VITALS: BP 114/82; PULSE 77; RESP 18; TEMP 97.8; O2SAT 98
[2024-07-01 22:46] VITALS: BP 112/63; PULSE 68; RESP 18; TEMP 98; O2SAT 98
[2024-07-02 09:41] VITALS: BP 98/50; PULSE 65; RESP 16; TEMP 97.7; O2SAT 99
[2024-07-02 22:00] VITALS: BP 124/94; PULSE 73; RESP 18; TEMP 97.5; O2SAT 100
[2024-07-03 08:20] VITALS: BP 105/73; PULSE 70; RESP 19; TEMP 98.1; O2SAT 100
[2024-07-03 17:07] LABS: APPEARANCE,URINE CLEAR (CLEAR); BILIRUBIN,URINE NEGATIVE (NEGATIVE); COLOR,URINE COLORLESS (YELLOW); GLUCOSE, URINE (UA) NEGATIVE (NEGATIVE); KETONES,URINE NEGATIVE (NEGATIVE); LEUKOCYTE ESTERASE ,URINE NEGATIVE (NEGATIVE); NITRATE,URINE NEGATIVE (NEGATIVE); OCCULT BLOOD,URINE NEGATIVE (NEGATIVE); PH,URINE 7.5 (5.0-8.0); PROTEIN,URINE NEGATIVE (NEGATIVE); SPECIFIC GRAVITIY, URINE 1.017 (1.003-1.030); UROBILINOGEN,URINE <=1.0 mg/dL (<=1.0)
[2024-07-03 21:49] VITALS: BP 116/79; PULSE 66; RESP 18; O2SAT 100
[2024-07-04 08:50] VITALS: BP 103/60; PULSE 60; RESP 18; TEMP 98.1; O2SAT 99
[2024-07-04 12:56] LABS: BASOPHILS % (AUTO) 0.3 % (0.0-2.0); EOSINOPHILS % (AUTO) 3.6 % (1.0-6.0); HEMATOCRIT 40.8 % (36-46); HEMOGLOBIN 13.4 g/dL (12.0-16.0); LYMPHOCYTES # (AUTO) 1.7 K/uL (1.0-4.8); LYMPHOCYTES % (AUTO) 32.2 % (22.0-44.0); MEAN CORPUSCULAR HEMOGLOBIN 29.5 pg (26.0-34.0); MEAN CORPUSCULAR VOLUME 90 fL (80-100); MONOCYTES # (AUTO) 0.3 K/uL (0.1-1.0); MONOCYTES % (AUTO) 5.2 % (2.0-9.0); NEUTROPHILS # (AUTO) 3.1 K/uL (1.8-7.7); NEUTROPHILS % (AUTO) 58.7 % (40.0-70.0); PLATELET COUNT (AUTO) 266 K/uL (150-450); RED BLOOD CELL COUNT(AUTO) 4.55 MIL/uL (4.00-5.20); RED CELL DISTRIBUTION WIDTH 14.5 % (11.5-14.5); WHITE BLOOD COUNT (AUTO) 5.2 K/uL (4.5-11.0)
[2024-07-04 13:14] LABS: ANION GAP 5 mmol/L (8-16); CARBON DIOXIDE 34 mmol/L (22-29); CHLORIDE 103 mmol/L (98-107); CREATININE 0.82 mg/dL (0.60-1.30); GLOMERULAR FILTR. RATE CALC > 60 mL/min (>60); GLUCOSE,RANDOM 96 mg/dL (70-110); POTASSIUM 4.1 mmol/L (3.5-5.1); SODIUM SERUM 142 mmol/L (136-145); UREA NITROGEN, BLOOD 10 mg/dL (7-18)
[2024-07-04 20:47] VITALS: BP 116/87; PULSE 78; RESP 18; TEMP 98.1; O2SAT 99
[2024-07-04 21:25] VITALS: BP 116/87; PULSE 78; RESP 18; TEMP 98.1; O2SAT 99
[2024-07-05 06:07] LABS: LYMPHS % FOR CD4 COUNT 35 % (Not Estab.); LYMPHS ABS FOR CD4 COUNT 1.8 x10E3/uL (0.7-3.1); WBC FOR CD4 COUNT 5.3 x10E3/uL (3.4-10.8)
[2024-07-05 10:07] LABS: ABSOLUTE CD4 COUNT 972 /uL (359-1519)
[2024-07-05 14:07] VITALS: BP 103/70; PULSE 79; RESP 18; TEMP 97.8; O2SAT 99
[2024-07-05] MEDS: PERMETHRIN 1% 60 ML LOTION TP ONE (17:00)
[2024-07-05 22:00] VITALS: BP 105/82; PULSE 80; RESP 18; TEMP 97.5; O2SAT 99
[2024-07-06 04:07] LABS: HIV 1-2 SCREEN 4TH GEN W/RFLX Non Reactive (Non Reactive)
[2024-07-06 15:06] VITALS: BP 118/69; PULSE 60; RESP 18; TEMP 98.1; O2SAT 100
[2024-07-06] MEDS: ALBUTEROL SULFATE HFA 90 MCG/PUFF 8 GM INHALER IH PRN (18:58)
[2024-07-06 22:31] VITALS: BP 114/81; PULSE 93; RESP 18; TEMP 97.8; O2SAT 98
[2024-07-07] MEDS ORDERED: BENZOCAINE/MENTHOL [CEPACOL] LOZENGE PO PRN (04:45)
[2024-07-07 10:46] VITALS: BP 122/74; PULSE 74; RESP 18; TEMP 97.6; O2SAT 96
[2024-07-07 23:28] VITALS: BP 102/80; PULSE 94; RESP 18; TEMP 97.3; O2SAT 98
[2024-07-08 10:17] VITALS: BP 138/91; PULSE 98; RESP 17; TEMP 98.8; O2SAT 97
[2024-07-08 21:20] VITALS: BP 149/83; PULSE 95; RESP 18; TEMP 97.7; O2SAT 99
[2024-07-09] MEDS: DIVALPROEX SODIUM 250 MG ER TABLET PO SCH (08:31)
[2024-07-09 10:47] VITALS: BP 114/67; PULSE 77; RESP 18; TEMP 98; O2SAT 100
[2024-07-09 22:13] VITALS: BP 117/85; PULSE 62; RESP 18; TEMP 97.5; O2SAT 96
[2024-07-10 09:53] VITALS: BP 108/65; PULSE 73; RESP 18; TEMP 97.3; O2SAT 99
[2024-07-10 20:30] VITALS: BP 104/69; PULSE 85; RESP 19; TEMP 98; O2SAT 100
[2024-07-11 09:57] VITALS: BP 110/69; PULSE 62; RESP 18; TEMP 97.7; O2SAT 100
[2024-07-11 20:47] VITALS: BP 122/76; PULSE 72; RESP 18; TEMP 97.8; O2SAT 97
[2024-07-12 09:18] VITALS: BP 117/90; PULSE 63; RESP 18; TEMP 98; O2SAT 100
[2024-07-12 23:23] VITALS: BP 110/72; PULSE 81; RESP 18; TEMP 97.5; O2SAT 100
[2024-07-13 09:00] VITALS: BP 117/70; PULSE 68; RESP 18; TEMP 97.1; O2SAT 100
[2024-07-13 21:59] VITALS: BP 119/97; PULSE 82; RESP 18; TEMP 97.8; O2SAT 100
[2024-07-14 08:00] VITALS: BP 120/80; PULSE 70; RESP 16; TEMP 97.3; O2SAT 99
[2024-07-14 20:19] VITALS: BP 116/77; PULSE 72; RESP 18; TEMP 96.8; O2SAT 97
[2024-07-15] MEDS: OLOPATADINE HCL 0.1% 5 ML OPHTHALMIC SOLUTION OU SCH (08:45)
[2024-07-15 10:16] VITALS: BP 125/90; PULSE 67; RESP 18; TEMP 98.2; O2SAT 99
[2024-07-15 21:08] VITALS: BP 102/62; PULSE 64; RESP 18; TEMP 97.8; O2SAT 97
[2024-07-16 08:25] VITALS: BP 115/80; PULSE 68; RESP 18; TEMP 97.6; O2SAT 100
[2024-07-16 23:51] VITALS: RESP 16
[2024-07-17 10:54] VITALS: BP 110/73; PULSE 64; RESP 18; TEMP 96.6; O2SAT 100
[2024-07-17 22:34] VITALS: BP 113/81; PULSE 72; RESP 18; TEMP 97.3; O2SAT 98
[2024-07-18 12:36] VITALS: BP 104/72; PULSE 63; RESP 17; TEMP 97; O2SAT 95
[2024-07-18 22:01] VITALS: BP 104/69; PULSE 97; RESP 17; TEMP 97.5; O2SAT 100
[2024-07-19 08:25] VITALS: BP 99/85; PULSE 83; RESP 17; TEMP 97.9; O2SAT 96
[2024-07-19] MEDS: haloperidoL 5 MG TABLET PO PRN (21:55)
[2024-07-19 22:16] VITALS: BP 124/67; PULSE 65; RESP 18; TEMP 97.4; O2SAT 97
[2024-07-20 10:44] VITALS: BP 105/66; PULSE 75; RESP 18; TEMP 97.4; O2SAT 97
[2024-07-20] MEDS ORDERED: LORazepam 2 MG/ML VIAL ONE (19:27)
[2024-07-20 19:51] LABS: GLUCOMETER DEV NAME(LOC) 3EX.2; GLUCOSE,POINT OF CARE 80 MG/DL (70-110)
[2024-07-20 22:22] VITALS: BP 126/103; PULSE 83; RESP 18; TEMP 97.7; O2SAT 100
[2024-07-21 15:50] VITALS: BP 122/71; PULSE 73; RESP 18; TEMP 97.8; O2SAT 99
[2024-07-21 23:26] VITALS: BP 118/78; PULSE 84; RESP 18; TEMP 98; O2SAT 100
[2024-07-22 10:16] VITALS: BP 117/89; PULSE 80; RESP 18; TEMP 97.8; O2SAT 96
[2024-07-22 23:30] VITALS: BP 121/96; PULSE 75; RESP 18; TEMP 97.5; O2SAT 100
[2024-07-23 09:00] VITALS: BP 119/91; PULSE 84; RESP 16; TEMP 97.7; O2SAT 97
[2024-07-23 22:21] VITALS: BP 115/80; PULSE 75; RESP 18; TEMP 97.5; O2SAT 100
[2024-07-24 03:30] VITALS: BP 116/69; PULSE 74; RESP 16; TEMP 97.5; O2SAT 96
[2024-07-24 09:38] VITALS: BP 107/55; PULSE 85; RESP 18; TEMP 98.3; O2SAT 96
[2024-07-24 22:29] VITALS: BP 106/90; PULSE 78; RESP 18; TEMP 98.3; O2SAT 100
[2024-07-25 12:20] VITALS: BP 114/75; PULSE 77; RESP 17; TEMP 98; O2SAT 96
[2024-07-25 21:46] VITALS: BP 150/79; PULSE 74; RESP 18; TEMP 98; O2SAT 98
[2024-07-26 09:00] VITALS: BP 105/59
[2024-07-26 22:29] VITALS: RESP 18
[2024-07-27 09:37] VITALS: BP 125/81; PULSE 79; RESP 18; TEMP 98.1; O2SAT 98
[2024-07-27 20:20] VITALS: BP 117/74; PULSE 68; RESP 17; TEMP 98.9; O2SAT 98
[2024-07-28 08:33] VITALS: BP 111/72; PULSE 68; RESP 18; TEMP 97.7; O2SAT 100
[2024-07-28 23:06] VITALS: BP 118/70; PULSE 61; RESP 18; TEMP 97.7; O2SAT 96
[2024-07-29 12:00] VITALS: BP 95/79; PULSE 60; RESP 17; TEMP 96.5; O2SAT 100
== END 2024-07-29 14:25 | disposition home or self-care (01) | DRG 750 ==
LOC: B3A 04:02 → 3EI 06-27 22:14
PROVIDERS: ADMIT Psychiatry & Neurology Psychiatry; ATTEND Psychiatry & Neurology Psychiatry
PROC: GZ52ZZZ Individual Psychotherapy, Cognitive (ICD-10-PCS; principal; 2024-07-04)
PROC: GZHZZZZ Group Psychotherapy (ICD-10-PCS; 2024-07-04)
DX: F25.0 Schizoaffective disorder, bipolar type (principal); R45.851 Suicidal ideations; F79 Unspecified intellectual disabilities; G40.909 Epilepsy, unspecified, not intractable, without status epilepticus; F32.9 Major depressive disorder, single episode, unspecified; F41.9 Anxiety disorder, unspecified; G47.00 Insomnia, unspecified; K21.9 Gastro-esophageal reflux disease without esophagitis; K59.00 Constipation, unspecified; F84.0 Autistic disorder; Z79.899 Other long term (current) drug therapy; Z91.018 Allergy to other foods
CPT/HCPCS: 80048; 80053; 80061; 80164; 80307; 81001; 81003; 82962; 83036; 84436; 84439; 84443; 84702; 85025; 86361; 86592; 86803; 87077; 87081; 87086; 87340; 87389; 93005; J2060; J3535

== ENCOUNTER 2024-09-15 19:01 | Inpatient (IN) | payer OTHER ==
[2024-09-15 19:00] VITALS: BP 120/64; PULSE 72; RESP 18; TEMP 97.9; O2SAT 97
[~2024-09-15 19:01] MED LIST changes: -LEVE250T PO; -TRAZ-252 PO
[2024-09-15] MEDS ORDERED: ALBUTEROL SULFATE 2.5 MG/0.5 ML NEB SOLUTION NEB PRN (20:15)
[2024-09-15] MEDS ORDERED: BACITRACIN 28 GM OINTMENT TP PRN (20:15)
[2024-09-15] MEDS ORDERED: LOPERAMIDE HCL 2 MG CAPSULE PO PRN (20:15)
[2024-09-15] MEDS ORDERED: ONDANSETRON 4 MG TABLET PO PRN (20:15)
[2024-09-15] MEDS ORDERED: DOCUSATE SODIUM 100 MG CAPSULE PO PRN (20:15)
[2024-09-15] MEDS ORDERED: PETROLATUM,WHITE 28 GM JELLY TP PRN (20:15)
[2024-09-15] MEDS ORDERED: ONDANSETRON HCL 4 MG/2 ML VIAL IVP PRN (20:15)
[2024-09-15] MEDS ORDERED: MAG HYDROX/ALUMINUM HYD/SIMETH ES 30 ML SUSPENSION UDCUP PO PRN (20:15)
[2024-09-15] MEDS ORDERED: OMEPRAZOLE 20 MG CAPSULE PO PRN (20:15)
[2024-09-15] MEDS ORDERED: ACETAMINOPHEN 325 MG TABLET PO PRN (20:15)
[2024-09-15] MEDS ORDERED: MAGNESIUM HYDROXIDE SUSPENSION 30 ML UDCUP PO PRN (20:15)
[2024-09-15] MEDS ORDERED: IPRATROPIUM BROMIDE 0.5 MG/2.5 ML NEB SOLUTION NEB PRN (20:15)
[2024-09-15] MEDS ORDERED: BISACODYL 10 MG RECTAL RECTAL SUPPOSITORY PR PRN (20:15)
[2024-09-15] MEDS ORDERED: ALBUTEROL SULFATE HFA 90 MCG/PUFF 8 GM INHALER IH PRN (20:15)
[2024-09-15] MEDS: DOCUSATE SODIUM 100 MG CAPSULE PO SCH (22:18)
[2024-09-15] MEDS: POLYETHYLENE GLYCOL 3350 17 GM PACKET PO SCH (22:18)
[2024-09-15] MEDS: ACETAMINOPHEN 325 MG TABLET PO PRN (22:18)
[2024-09-15] MEDS: DIVALPROEX SODIUM 500 MG ER TABLET PO SCH (22:18)
[2024-09-16 05:13] VITALS: BP 119/84; PULSE 75; RESP 18; TEMP 97.7; O2SAT 98
[2024-09-16 07:03] LABS: PLATELET COUNT (AUTO) 192 K/uL (150-450); RED BLOOD CELL COUNT(AUTO) 4.12 MIL/uL (4.00-5.20); RED CELL DISTRIBUTION WIDTH 15.2 % (11.5-14.5); WHITE BLOOD COUNT (AUTO) 5.7 K/uL (4.5-11.0)
[2024-09-16 07:50] LABS: APPEARANCE,URINE CLEAR (CLEAR); GLUCOSE, URINE (UA) NEGATIVE (NEGATIVE); LEUKOCYTE ESTERASE ,URINE SMALL (NEGATIVE); NITRATE,URINE NEGATIVE (NEGATIVE); OCCULT BLOOD,URINE NEGATIVE (NEGATIVE); SPECIFIC GRAVITIY, URINE 1.031 (1.003-1.030)
[2024-09-16 07:56] LABS: ASPARTATE AMINOTRANSFERASE 15 U/L (15-37); CALCIUM, TOTAL 8.4 mg/dL (8.8-10.5); CHOL/HDL RATIO 2.4 (3.9-5.7); CREATININE 0.77 mg/dL (0.60-1.30); GLOMERULAR FILTR. RATE CALC > 60 mL/min (>60); GLUCOSE,RANDOM 81 mg/dL (70-110); LDL CHOL (CALC.) 66 mg/dL (0-130); PHOSPHORUS 4.3 mg/dL (2.5-4.9); SODIUM SERUM 141 mmol/L (136-145); TOTAL PROTEIN, SERUM 6.8 g/dL (6.4-8.2); UREA NITROGEN, BLOOD 11 mg/dL (7-18)
[2024-09-16 08:00] VITALS: BP 114/67; PULSE 63; RESP 19; TEMP 98.1; O2SAT 98
[2024-09-16 08:13] LABS: SQUAMOUS EPITHELIAL CELL,UR Rare /LPF (None Seen)
[2024-09-16 15:23] VITALS: BP 116/77; PULSE 60; RESP 18; TEMP 97.5; O2SAT 99
[2024-09-16 19:42] VITALS: BP 109/75; PULSE 75; RESP 18; TEMP 97.9; O2SAT 99
[2024-09-17 06:16] VITALS: BP 110/78; PULSE 75; RESP 18; TEMP 98.6; O2SAT 97
[2024-09-17] MEDS: LEVOTHYROXINE SODIUM 25 MCG TABLET PO SCH (06:41)
[2024-09-17 07:33] VITALS: BP 104/65; PULSE 65; RESP 18; TEMP 97.7; O2SAT 96
[2024-09-17 17:32] LABS: COVID AG,FIA SOURCE NASAL SWAB
[2024-09-17 17:50] LABS: SARS-COV2 (COVID) ANTIGEN,FIA Negative (Negative)
[2024-09-17 19:46] VITALS: BP 103/60; PULSE 73; RESP 18; TEMP 98.2; O2SAT 100
== END 2024-09-17 20:30 | DRG 254 ==
LOC: 6S 19:15
PROVIDERS: ADMIT Internal Medicine; ATTEND Internal Medicine
DX: T18.3XXA Foreign body in small intestine, initial encounter (principal); F25.0 Schizoaffective disorder, bipolar type; R45.851 Suicidal ideations; G40.909 Epilepsy, unspecified, not intractable, without status epilepticus; K21.9 Gastro-esophageal reflux disease without esophagitis; F41.9 Anxiety disorder, unspecified; F84.0 Autistic disorder; K59.00 Constipation, unspecified; G47.00 Insomnia, unspecified; Z20.822 Contact with and (suspected) exposure to COVID-19; W44.E9XA Other non-magnetic metal objects entering into or through a natural orifice, initial encounter; Y93.89 Activity, other specified; Y92.89 Other specified places as the place of occurrence of the external cause; Y99.8 Other external cause status; Z60.8 Other problems related to social environment; Z56.0 Unemployment, unspecified; Z91.010 Allergy to peanuts
CPT/HCPCS: 74018; 80053; 80061; 81001; 83735; 84100; 84439; 84443; 85025; J2405; 36415-L1; 36415-TC

== ENCOUNTER 2024-09-17 17:12 | Inpatient (IN) | payer MEDICAID ==
[~2024-09-17] VITALS: Ht 157.5 cm; Wt 76.2 kg
[2024-09-17 20:35] VITALS: BP 120/75; PULSE 64; RESP 18; TEMP 98.6; O2SAT 99
[2024-09-17] MEDS: ZOLPIDEM TARTRATE 10 MG TABLET PO PRN (21:57)
[2024-09-17] MEDS ORDERED: OMEPRAZOLE 20 MG CAPSULE PO PRN (22:15)
[2024-09-17] MEDS ORDERED: MAGNESIUM HYDROXIDE SUSPENSION 30 ML UDCUP PO PRN (22:15)
[2024-09-17] MEDS ORDERED: DOCUSATE SODIUM 100 MG CAPSULE PO PRN (22:15)
[2024-09-17] MEDS ORDERED: BACITRACIN 28 GM OINTMENT TP PRN (22:15)
[2024-09-17] MEDS ORDERED: ONDANSETRON 4 MG TABLET PO PRN (22:15)
[2024-09-17] MEDS ORDERED: LOPERAMIDE HCL 2 MG CAPSULE PO PRN (22:15)
[2024-09-17] MEDS ORDERED: BISACODYL 10 MG RECTAL RECTAL SUPPOSITORY PR PRN (22:15)
[2024-09-17] MEDS ORDERED: IPRATROPIUM BROMIDE 0.5 MG/2.5 ML NEB SOLUTION NEB PRN (22:15)
[2024-09-17] MEDS ORDERED: PETROLATUM,WHITE 28 GM JELLY TP PRN (22:15)
[2024-09-17] MEDS ORDERED: ALBUTEROL SULFATE HFA 90 MCG/PUFF 8 GM INHALER IH PRN (22:45)
[2024-09-17] MEDS ORDERED: ALBUTEROL SULFATE 2.5 MG/0.5 ML NEB SOLUTION NEB PRN (22:45)
[2024-09-18] MEDS: LEVOTHYROXINE SODIUM 25 MCG TABLET PO SCH (06:29)
[2024-09-18 08:05] LABS: CHOL/HDL RATIO 2.9 (3.9-5.7); LDL CHOL (CALC.) 67.0 mg/dL (0-130)
[2024-09-18 09:00] VITALS: BP 121/62; PULSE 68; RESP 19; TEMP 98.2; O2SAT 98
[2024-09-18] MEDS: DOCUSATE SODIUM 100 MG CAPSULE PO SCH (09:07)
[2024-09-18] MEDS: POLYETHYLENE GLYCOL 3350 17 GM PACKET PO SCH (09:07)
[2024-09-18] MEDS ORDERED: LORazepam 2 MG/ML VIAL ONE (15:07)
[2024-09-18 15:10] VITALS: BP 115/78; PULSE 112; RESP 20; TEMP 97.8; O2SAT 100
[2024-09-18] MEDS: LORazepam 2 MG/ML VIAL IM ONE ×3 (15:16→17:09)
[2024-09-18] MEDS: DIVALPROEX SODIUM 500 MG ER TABLET PO SCH (17:53)
[2024-09-18 21:23] VITALS: BP 115/86; PULSE 110; RESP 18; TEMP 98.2; O2SAT 100
[2024-09-19 16:00] VITALS: BP 110/74; PULSE 103; RESP 18; TEMP 98; O2SAT 97
[2024-09-19 17:19] LABS: APPEARANCE,URINE HAZY (CLEAR); GLUCOSE, URINE (UA) NEGATIVE (NEGATIVE); LEUKOCYTE ESTERASE ,URINE LARGE (NEGATIVE); NITRATE,URINE NEGATIVE (NEGATIVE); OCCULT BLOOD,URINE NEGATIVE (NEGATIVE); PH,URINE DRUG SCREEN 6.0 (5.0-8.0); SPECIFIC GRAVITIY, URINE 1.030 (1.003-1.030)
[2024-09-19 17:27] LABS: ALCOHOL, URINE DRUG SCREEN NEGATIVE (NEGATIVE); AMPHET/METH SCREEN,URINE NEGATIVE (NEGATIVE); BARBITURATE SCREEN, URINE NEGATIVE (NEGATIVE); CANNABINOID SCREEN,URINE NEGATIVE (NEGATIVE); COCAINE SCREEN,URINE NEGATIVE (NEGATIVE); METHADONE SCREEN, URINE NEGATIVE (NEGATIVE)
[2024-09-19 17:31] LABS: SQUAMOUS EPITHELIAL CELL,UR Few /LPF (None Seen)
[2024-09-19] MEDS: NITROFURANTOIN MONOHYD/M-CRYST 100 MG CAPSULE [MACROBID] PO SCH (20:48)
[2024-09-19 23:27] VITALS: BP 126/95; PULSE 100; RESP 18; TEMP 98.7; O2SAT 97
[2024-09-20 15:05] VITALS: RESP 18
[2024-09-20 17:56] VITALS: BP 124/79; PULSE 76; RESP 18; TEMP 97.6; O2SAT 99
[2024-09-20] MEDS: ACETAMINOPHEN 325 MG TABLET PO PRN (17:56)
[2024-09-20 22:54] VITALS: BP 118/76; PULSE 86; RESP 17; TEMP 98; O2SAT 100
[2024-09-21 09:11] VITALS: BP 103/76; PULSE 60; RESP 17; TEMP 98.1; O2SAT 98
[2024-09-21 16:39] VITALS: BP 129/77; PULSE 78; RESP 18; TEMP 97.8; O2SAT 98
[2024-09-21 18:30] VITALS: BP 114/68; PULSE 96; RESP 18; TEMP 98.1; O2SAT 100
[2024-09-21 20:13] VITALS: BP 108/87; PULSE 83; RESP 16; TEMP 98.1; O2SAT 99
[2024-09-22 09:19] VITALS: BP 104/62; PULSE 59; RESP 8; TEMP 97.4; O2SAT 97
[2024-09-22] MEDS: MAG HYDROX/ALUMINUM HYD/SIMETH ES 30 ML SUSPENSION UDCUP PO PRN (14:53)
[2024-09-22 20:30] VITALS: BP 115/82; PULSE 74; RESP 16; TEMP 98; O2SAT 98
[2024-09-23] MEDS ORDERED: LEVO25TA9 PO (07:19)
[2024-09-23] MEDS ORDERED: DOCU-385 PO (07:19)
[2024-09-23] MEDS ORDERED: NITR-104 PO (07:19)
[2024-09-23 11:27] VITALS: BP 122/78; PULSE 85; RESP 18; TEMP 97.9; O2SAT 98
== END 2024-09-23 17:29 | disposition home or self-care (01) | DRG 750 ==
LOC: 3EI 20:42
PROVIDERS: ADMIT Psychiatry & Neurology Psychiatry; ATTEND Psychiatry & Neurology Psychiatry
DX: F20.9 Schizophrenia, unspecified (principal); R45.851 Suicidal ideations; T18.8XXA Foreign body in other parts of alimentary tract, initial encounter; G40.909 Epilepsy, unspecified, not intractable, without status epilepticus; F41.9 Anxiety disorder, unspecified; G47.00 Insomnia, unspecified; K21.9 Gastro-esophageal reflux disease without esophagitis; K59.00 Constipation, unspecified; F94.0 Selective mutism; W44.8XXA Other foreign body entering into or through a natural orifice, initial encounter; F84.0 Autistic disorder; Y93.89 Activity, other specified; Y92.89 Other specified places as the place of occurrence of the external cause; Y99.8 Other external cause status; Z88.8 Allergy status to other drugs, medicaments and biological substances; Z91.018 Allergy to other foods; Z91.010 Allergy to peanuts
CPT/HCPCS: 74018; 80061; 80164; 80307; 81001; 83036; 84703; 87081; 87086; J2060; 36415-L1; 36415-TC